=== PATIENT | male | born 1985 | race Caucasian/White ===

== ENCOUNTER 2018-03-09 10:31 | Emergency (ER) | END 2018-03-09 12:15 | disposition home or self-care (01) ==

== ENCOUNTER 2019-04-28 15:37 | Emergency (ER) | payer MEDICAID ==
[~2019-04-28] VITALS: Ht 172.7 cm; Wt 99.7 kg
[~2019-04-28 15:37] MED LIST: IBUP-1542 PO
[2019-04-28 15:53] VITALS: BP 121/68; PULSE 68; RESP 20; Ht 172.7 cm; Wt 99.7 kg
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
[2019-04-28] MEDS ORDERED: BACL10TA PO (16:13)
[2019-04-28] MEDS ORDERED: IBUP-1542 PO (16:13)
[2019-04-28] MEDS ORDERED: ACET325T33 PO (16:13)
== END 2019-04-28 16:14 | disposition home or self-care (01) ==
LOC: E/R 15:37
DX: S70.02XA Contusion of left hip, initial encounter (principal); S49.92XA Unspecified injury of left shoulder and upper arm, initial encounter; V69.49XA Driver of heavy transport vehicle injured in collision with other motor vehicles in traffic accident, initial encounter; Z87.891 Personal history of nicotine dependence
CPT/HCPCS: 99283